=== PATIENT | female | born 1995 | race Caucasian/White ===

== ENCOUNTER 2024-09-18 13:26 | Inpatient (IN) ==
[2024-09-18] MEDS ORDERED: Lidocaine 1% VIAL 10 MG/ML 30 ML VIAL INJ PRN (14:42)
[2024-09-18 15:27] LABS: Urine Benzodiazepine Screen None Detected (None Detect); Urine Cannabinoids Screen None Detected (None Detect); Urine Opiates Screen None Detected (None Detect)
[2024-09-18] MEDS: Buffered Lidocaine 1% SYRIN 1 ml INTRADERM ONE (15:28)
[2024-09-18] MEDS: Lactated Ringers 1000 ml BAG 1,000 ML IV ONE (15:28)
[2024-09-18 15:42] LABS: ABS Lymphocytes 1.8 10^3/uL (1.0-4.8); ABS Monocytes 0.5 10^3/uL (0.0-0.9); ABS Neutrophils 4.9 10^3/uL (1.5-7.6); Eosinophil % 0.4 %; Hematocrit 32.5 % (35-45); Lymphocyte % 25.2 %; Mean Corpuscular Hemoglobin 29.5 pg (27-33); Mean Corpuscular Hgb Conc 33.8 g/dL (31-36); Mean Corpuscular Volume 87.5 fL (80-97); Mean Platelet Volume 10.1 fL (7.5-11.2); Platelet Count 203 10^3/uL (150-450); Red Blood Count 3.72 10^6/uL (3.63-4.92); Red Cell Distribution Width 14.5 % (12-17); White Blood Count 7.3 10^3/uL (3.8-11.8)
[2024-09-18] MEDS: Oxytocin in LR 20,000 MILLI.UNIT/1,000 ML BAG IV SCH (15:46)
[2024-09-18] MEDS: Lactated Ringers 1000 ml BAG 1,000 ML IV SCH (18:14)
[2024-09-18] MEDS: OBEPIDURAL (200 ML) 200 ML EPIDURAL ONE (20:04)
[2024-09-18] MEDS ORDERED: Phenylephrine 40 mcg/mL 10mL (400mcg) SYRINGE IV PUSH PRN ×2 (20:11)
[2024-09-18] MEDS ORDERED: Sodium Citrate/Citric Acid LIQ 15 ML UDC PO PRN (20:11)
[2024-09-18 21:40] LABS: Urine Appearance Clear; Urine Bilirubin Negative (Negative); Urine Blood Negative (Negative); Urine Color Light-Yellow; Urine Glucose Negative (Negative); Urine Ketones 1+ (Negative); Urine Nitrite Negative (Negative); Urine Protein Negative (Negative); Urine Specific Gravity 1.012 (1.002-1.030); Urine Urobilinogen Negative (Negative); Urine pH 6.5 (5.0-8.0)
[2024-09-19] MEDS ORDERED: Glycerin ADULT 2.4 gm SUPP PR PRN (00:15)
[2024-09-19] MEDS: Witch Hazel PAD JAR TOPICAL PRN (00:49)
[2024-09-19] MEDS: Dibucaine 1% OINT 28.35 GM TUBE PR PRN (00:50)
[2024-09-19] MEDS: Lidocaine 1.5% EPI 1:200,000 30 ML SDV ONE (02:22)
[2024-09-19] MEDS: Phenylephrine 40 mcg/mL 10mL (400mcg) SYRINGE ONE (02:22)
[2024-09-19] MEDS: Lactated Ringers 1000 ml BAG 1,000 ML IV ONE (02:22)
[2024-09-19] MEDS: OBEPIDURAL (200 ML) 200 ML EPIDURAL SCH (02:25)
[2024-09-19] MEDS: Lactated Ringers 1000 ml BAG 1,000 ML IV SCH (02:26)
[2024-09-19 06:51] LABS: ABS Lymphocytes 1.8 10^3/uL (1.0-4.8); ABS Monocytes 0.8 10^3/uL (0.0-0.9); ABS Neutrophils 6.8 10^3/uL (1.5-7.6); Eosinophil % 0.4 %; Hematocrit 29.8 % (35-45); Hemoglobin 10.6 g/dL (11.5-14.3); Mean Corpuscular Hemoglobin 30.9 pg (27-33); Mean Corpuscular Hgb Conc 35.6 g/dL (31-36); Mean Corpuscular Volume 86.9 fL (80-97); Platelet Count 167 10^3/uL (150-450); Red Blood Count 3.43 10^6/uL (3.63-4.92); Red Cell Distribution Width 14.3 % (12-17); White Blood Count 9.5 10^3/uL (3.8-11.8)
[2024-09-20 09:05] VITALS: BP 140/87
== END 2024-09-20 13:50 | disposition home or self-care (01) | DRG 560 ==
LOC: MCHOBOUT 13:26 → MCHOB 14:46
PROVIDERS: ADMIT Midwife; ATTEND Midwife